=== PATIENT | female | born 1980 | race Caucasian/White ===

== ENCOUNTER → 2016-12-04 | Outpatient (CLI) | payer OTHER ==
[~2016-12-04] VITALS: Ht 167.6 cm; Wt 81.6 kg
[~2016-12-04] MED LIST: ACET500C11 PO; ACHD5005 PO; ACHYD1T PO; AMIT10TA6; AMIT25TA9; AZIT250T5; BUTA1CAP39 PO; CALC-817 PO; CALCIUM PO; CEFD300C3 PO; CHOL50003 PO; CPR500T PO; CYCL10TA9 PO; DCS100C PO; DICY10CA26 PO; FERR325C PO; HYDR-34 PO; HYDR-3812 PO; IBUP400T22 PO; Ibuprofen PO; MAG30ORA2 PO; MEPERIDINE HCL IV; METR500T PO; OMEG1CAP51 PO; POLY17PO23 GT; PROMETHAZINE INJ 25 MG/ML (PHENERGAN) AMP IV ONE; SMT80CT PO; TOPAMAX PO; TRAM50TA2 PO; VIT1TABL93 PO; [UNRECOGNIZED DRUG - OTHER]; [UNRECOGNIZED DRUG - OTHER] PO; [UNRECOGNIZED DRUG - OTHER] PO; bcp PO
[2016-12-04] MEDS: fentaNYL INJECTION 100 MCG/2 ML AMP IV NR ×2 (13:42→14:35)
[2016-12-04 14:08] LABS: MEAN PLATELET VOLUME 12.7 FL (7.4-10.4); RED BLOOD COUNT 4.51 10^6/uL (4.35-5.85); WHITE BLOOD COUNT 7.2 10^3/uL (4.3-11.0)
[2016-12-04 14:24] LABS: ALANINE AMINOTRANSFERASE 10 U/L (0-55); ALBUMIN 4.1 G/DL (3.2-4.5); ANION GAP 9 MMOL/L (5-14); ASPARTATE AMINO TRANSFERASE 16 U/L (5-34); BILIRUBIN,TOTAL 0.4 MG/DL (0.1-1.0); BLOOD UREA NITROGEN 13 MG/DL (7-18); BUN/CREATININE RATIO 16; CALCIUM 8.9 MG/DL (8.5-10.1); CARBON DIOXIDE 20 MMOL/L (21-32); CHLORIDE 113 MMOL/L (98-107); CREATININE SERUM 0.82 MG/DL (0.60-1.30); GFR ESTIMATED > 60; GLUCOSE 76 MG/DL (70-105); POTASSIUM 3.9 MMOL/L (3.6-5.0); SODIUM 142 MMOL/L (135-145); TOTAL PROTEIN 6.7 G/DL (6.4-8.2)
[2016-12-04 14:45] VITALS: BP 106/75
[2016-12-04 14:46] LABS: THYROID STIMULATING HORMONE 0.53 UIU/ML (0.35-4.94)
== END ==
LOC: SDC 13:01
PROVIDERS: ATTEND Nurse Practitioner Family
DX: G43.909 Migraine, unspecified, not intractable, without status migrainosus (principal)
CPT/HCPCS: 36415; 80053; 84443; 85027; 96365; 96374; 96375

== ENCOUNTER 2016-12-12 10:52 | Outpatient (RCR) | payer OTHER ==
--- OUTSIDE RECORDS SUMMARY | 2016-09-17 10:48 | XMS REPORT | Continuity of Care Document ---
Author Author [facility] Organization [facility] Address Unknown Phone Unavailable Care Team Providers Care Copy Center Associate Name Role Phone Unverified, Unverified PCP Unavailable Source Comments Some departments are not documenting in the electronic medical record. If you do not see the information that you expected, contact Release of Information in the Health Information Management department at [phone] for further assistance in locating additional records.[facility] Active Allergies and Adverse Reactions Not on File Current Medications Not on file Active Problems Not on file Social History Tobacco Use Types Packs/Day Years Used Date Never Assessed Plan of Care Health Maintenance Due Date Last Done Comments Physical (Comprehensive) 1987 Exam Pertussis Vaccine 1991 Tetanus Vaccine 1997 Cervical Cancer Screening 2001 Influenza Vaccine 05/01/2016 Results from Last 3 Months Not on file
[~2016-12-12 10:52] MED LIST changes: -AMIT10TA6; -AMIT25TA9; -AZIT250T5; -CEFD300C3 PO; -CYCL10TA9 PO; -HYDR-3812 PO; -PROMETHAZINE INJ 25 MG/ML (PHENERGAN) AMP IV ONE
== END 2016-12-12 11:51 | disposition home or self-care (01) ==
PROVIDERS: ATTEND Nurse Practitioner Family
DX: M54.2 Cervicalgia (principal); M25.511 Pain in right shoulder

== ENCOUNTER 2017-01-09 20:03 | Emergency (ER) | payer OTHER ==
[~2017-01-09] VITALS: Ht 167.6 cm; Wt 81.6 kg
[2017-01-09] MEDS ORDERED: fentaNYL INJECTION 100 MCG/2 ML AMP IVP STA ×2 (20:13→21:42)
[2017-01-09] MEDS ORDERED: TETANUS,DIPTH,PERTUSS P/F (BOOSTRIX) 0.5 ML VIAL IM STA (20:13)
[2017-01-09] MEDS ORDERED: AMIT10TA6 (20:14)
[2017-01-09] MEDS ORDERED: AZIT250T5 (20:14)
[2017-01-09] MEDS ORDERED: AMIT25TA9 (20:14)
[2017-01-09 20:25] LABS: MEAN PLATELET VOLUME 11.2 FL (7.4-10.4); RED BLOOD COUNT 4.22 10^6/uL (4.35-5.85); RED CELL DISTRIBUTION WIDTH 11.9 % (10.0-14.5); WHITE BLOOD COUNT 11.1 10^3/uL (4.3-11.0)
[2017-01-09] MEDS ORDERED: IOHEXOL 350 MG/ML 100 ML (OMNIPAQUE 350) VIAL IV ONE (20:30)
[2017-01-09] MEDS ORDERED: NS 100 ML (IVPB) BAG IV ONE (20:30)
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
[2017-01-09 20:44] LABS: ALANINE AMINOTRANSFERASE 19 U/L (0-55); ALBUMIN 4.2 G/DL (3.2-4.5); ALCOHOL < 10 MG/DL (<10); ANION GAP 13 MMOL/L (5-14); ASPARTATE AMINO TRANSFERASE 29 U/L (5-34); BILIRUBIN,TOTAL 0.2 MG/DL (0.1-1.0); BLOOD UREA NITROGEN 12 MG/DL (7-18); BUN/CREATININE RATIO 14; CALCIUM 9.5 MG/DL (8.5-10.1); CARBON DIOXIDE 19 MMOL/L (21-32); CHLORIDE 109 MMOL/L (98-107); CREATININE SERUM 0.85 MG/DL (0.60-1.30); GFR ESTIMATED > 60; GLUCOSE 92 MG/DL (70-105); POTASSIUM 3.7 MMOL/L (3.6-5.0); SODIUM 141 MMOL/L (135-145); TOTAL PROTEIN 7.1 G/DL (6.4-8.2)
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
[2017-01-09] MEDS ORDERED: HYDROcodone/APAP 7.5 MG/325 MG (LORTAB, LORCET PLUS) TABLET PO STA (21:42)
[2017-01-09] MEDS ORDERED: RX-HYDROCODONE/APAP 5/325 MG #4 TAB PK PO PRN (21:45)
[2017-01-09 22:16] LABS: BILIRUBIN,URINE NEGATIVE (NEGATIVE); KETONES,URINE NEGATIVE (NEGATIVE); LEUKOCYTE ESTERASE ,URINE NEGATIVE (NEGATIVE); NITRITE,URINE NEGATIVE (NEGATIVE); PH,URINE 6 (5-9); PROTEIN,URINE NEGATIVE (NEGATIVE); UROBILINOGEN,URINE NORMAL (NORMAL)
[2017-01-09] MEDS ORDERED: CYCL10TA9 PO (22:19)
[2017-01-09] MEDS ORDERED: HYDR-3812 PO (22:19)
[2017-01-09] MEDS ORDERED: CEFD300C3 PO (22:19)
[2017-01-09 22:23] LABS: SQUAMOUS EPITHELIAL CELL,UR 0-2 /HPF
[2017-01-09 22:28] VITALS: BP 136/94
== END 2017-01-09 22:32 | disposition home or self-care (01) ==
LOC: EDUNIT# 20:03 → ER 20:04
DX: S09.90XA Unspecified injury of head, initial encounter (principal); S20.212A Contusion of left front wall of thorax, initial encounter; S40.022A Contusion of left upper arm, initial encounter; S80.01XA Contusion of right knee, initial encounter; S30.1XXA Contusion of abdominal wall, initial encounter; Z23 Encounter for immunization; J32.0 Chronic maxillary sinusitis; W22.11XA Striking against or struck by driver side automobile airbag, initial encounter; V43.52XA Car driver injured in collision with other type car in traffic accident, initial encounter; Y92.481 Parking lot as the place of occurrence of the external cause; Y99.8 Other external cause status
CPT/HCPCS: 36415; 70450; 71010; 71260; 72125; 72170; 73060; 73562; 74177; 80053; 80320; 81000; 85027; 90471; 90715; 96374; 96376

== ENCOUNTER → 2017-05-14 | Outpatient (CLI) | payer OTHER ==
[~2017-05-14] MED LIST changes: +AMIT10TA6; +AMIT25TA9; +AZIT250T5; +CEFD300C3 PO; +CYCL10TA9 PO; +HYDR-3812 PO
--- NOTE | 2017-05-14 12:28 | Diagnostic Imaging Report ---
PROCEDURE: US Thyroid. TECHNIQUE: Multiple real-time grayscale images were obtained of the thyroid in various projections. INDICATION: Neck fullness. FINDINGS: The right thyroid lobe is 4.9 x 1.4 x 1.5 cm. The left lobe is 5.3 x 0.9 x 1.7 CM. There is a 0.6 x 0.7 x 0.5-cm hypoechoic nodule seen in the isthmus and another nonspecific hypoechoic nodule in the upper aspect of the left lobe measuring 0.6 x 0.5 x 0.3 cm. IMPRESSION: Tiny nonspecific subcentimeter thyroid nodule in the upper aspect of the left lobe and thyroid isthmus. Dictated by: Dictated on workstation # [id number]
== END ==
LOC: RAD 09:03
PROVIDERS: ATTEND Nurse Practitioner Family
DX: E04.1 Nontoxic single thyroid nodule (principal)
CPT/HCPCS: 76536

== ENCOUNTER → 2017-06-11 | Outpatient (CLI) | payer OTHER ==
--- NOTE | 2017-06-11 13:14 | Diagnostic Imaging Report ---
AP and frog lateral views of the right hip. INDICATION: Right hip pain. FINDINGS: No fracture, dislocation or radiopaque foreign body is seen. No arthritic changes are seen in the hip joint. IMPRESSION: Unremarkable exam. Dictated by: Dictated on workstation # [id number]
== END ==
LOC: RAD 11:57
PROVIDERS: ATTEND Nurse Practitioner Family
DX: M25.551 Pain in right hip (principal)
CPT/HCPCS: 73502

== ENCOUNTER 2017-07-30 23:38 | Emergency (ER) | payer OTHER ==
[~2017-07-30] VITALS: Ht 167.6 cm; Wt 81.6 kg
[~2017-07-30 23:38] MED LIST changes: +AZIT250T12; -AZIT250T5
--- OUTSIDE RECORDS SUMMARY | 2017-07-30 23:44 | XMS REPORT | Clinical Summary ---
Author Author [facility] Organization [facility] Address Unknown Phone Unavailable Care Team Providers Care Black Top Machine Operator Name Role Phone PCP Unavailable Source Comments Some departments are not documenting in the electronic medical record. If you do not see the information that you expected, contact Release of Information in the Health Information Management department at [phone] for further assistance in locating additional records.[facility] Allergies Not on File Current Medications Not on file Active Problems Not on file Social History Tobacco Use Types Packs/Day Years Used Date Never Assessed Sex Assigned at Date Recorded Not on file Last Filed Vital Signs Not on file Plan of Treatment Health Maintenance Due Date Last Done Comments PHYSICAL (COMPREHENSIVE) 1987 EXAM PERTUSSIS VACCINE 1991 TETANUS VACCINE 1997 CERVICAL CANCER SCREENING 2010 INFLUENZA VACCINE 03/31/2017 Results Not on filefrom Last 3 Months
[2017-07-31 01:20] LABS: BILIRUBIN,URINE NEGATIVE (NEGATIVE); KETONES,URINE 1+ (NEGATIVE); LEUKOCYTE ESTERASE ,URINE 1+ (NEGATIVE); NITRITE,URINE NEGATIVE (NEGATIVE); PH,URINE 5 (5-9); PROTEIN,URINE 1+ (NEGATIVE); UROBILINOGEN,URINE NORMAL (NORMAL)
[2017-07-31 01:27] LABS: BASOPHILS % (AUTO) 0 % (0-10); EOSINOPHILS % (AUTO) 0 % (0-10); LYMPHOCYTES # (AUTO) 1.5 X 10^3 (1.0-4.0); LYMPHOCYTES % (AUTO) 15 % (12-44); MEAN CORPUSCULAR HEMOGLOBIN 31 PG (25-34); MEAN CORPUSCULAR HGB CONC 34 G/DL (32-36); MEAN CORPUSCULAR VOLUME 89 FL (80-99); MEAN PLATELET VOLUME 12.2 FL (7.4-10.4); MONOCYTES # (AUTO) 0.4 X 10^3 (0.0-1.0); MONOCYTES % (AUTO) 4 % (0-12); NEUTROPHILS # (AUTO) 7.9 X 10^3 (1.8-7.8); NEUTROPHILS % (AUTO) 81 % (42-75); PLATELET COUNT 270 10^3/uL (130-400); RED BLOOD COUNT 4.42 10^6/uL (4.35-5.85); RED CELL DISTRIBUTION WIDTH 11.9 % (10.0-14.5); WHITE BLOOD COUNT 9.8 10^3/uL (4.3-11.0)
[2017-07-31 01:33] LABS: ALANINE AMINOTRANSFERASE 19 U/L (0-55); ALBUMIN 4.2 GM/DL (3.2-4.5); ANION GAP 12 MMOL/L (5-14); ASPARTATE AMINO TRANSFERASE 28 U/L (5-34); BILIRUBIN,TOTAL 0.4 MG/DL (0.1-1.0); BLOOD UREA NITROGEN 12 MG/DL (7-18); BUN/CREATININE RATIO 15; CALCIUM 9.3 MG/DL (8.5-10.1); CARBON DIOXIDE 16 MMOL/L (21-32); CHLORIDE 110 MMOL/L (98-107); CREATININE SERUM 0.81 MG/DL (0.60-1.30); GFR ESTIMATED > 60; GLUCOSE 116 MG/DL (70-105); POTASSIUM 3.8 MMOL/L (3.6-5.0); SODIUM 138 MMOL/L (135-145); TOTAL PROTEIN 7.9 GM/DL (6.4-8.2)
[2017-07-31 01:36] LABS: WBC,URINE RARE /HPF
[2017-07-31] MEDS ORDERED: LACTATED RINGERS 1,000 ML IV ONE (01:50)
--- NOTE | 2017-07-31 01:55 | ED Headache ---
General Chief Complaint: Head/Cervical Problems Stated Complaint: NAUSEA,VOMITING,ALAMO,NECK PAIN Nursing Triage Note: c/o migraine, different from normal migraines, n/v Nursing Sepsis Screen: No Definite Risk Source: patient Exam Limitations: no limitations History of Present Illness Time seen by provider: 01:52 Initial Comments Patient presents to ER by private conveyance with chief complaint that she has a history of migraines. At 1600 yesterday evening she began to experience a right-sided migraine headache preceded by aura of nausea which is her normal presentation. 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 When she was off call she took her Phenergan but was so nauseated that she threw it up. She took her other medicines and amitriptyline and threw those up as well. She uses only amitriptyline for prophylaxis. Patient's having nausea now but no shortness of breath, fevers, diarrhea, rash. She has vomited once tonight and had some chills. No recent illnesses or sick contacts. Her headache is now global in nature and radiates to the base of her head where her neck, connects to her head. Allergies and Home Medications Allergies Coded Allergies: latex (Verified Allergy, Unknown, 04/25/14) Uncoded Allergies: MALARIA MEDICATION (Allergy, Mild, 04/11/13) malaria drug (Allergy, Unknown, 04/25/14) Home Medications Amitriptyline HCl 25 Mg Tablet, #30 (Reported) Amitriptyline HCl 10 Mg Tablet, #30 (Reported) Azithromycin 250 Mg Tablet, #6 (Reported) Cefdinir 300 Mg Capsule, 300 MG PO BID, #20 Ref 0 Prescribed by: LUCHO QUIÑONES on 01/09/172218 Cyclobenzaprine HCl 10 Mg Tablet, 10 MG PO Q8H PRN for SPASMS, #15 Ref 0 Prescribed by: LUCHO QUIÑONES on 01/09/172218 Hydrocodone/Acetaminophen 1 Each Tablet, 1 EACH PO Q4H PRN for PAIN-MODERATE, # 15 Ref 0 Prescribed by: LUCHO QUIÑONES on 01/09/172218 Constitutional: chills, No dizziness, No fever Eyes: Denies Blindness, Blurred Vision, Photophobia Ears, Nose, Mouth, Throat: denies ear pain, denies ear discharge Respiratory: No cough, No short of breath Cardiovascular: No chest pain, No palpitations Gastrointestinal: nausea, vomiting Genitourinary: No discharge, No dysuria : No (hysterectomy) Musculoskeletal: No back pain, No joint pain Skin: No pruritus, No rash Psychiatric/Neurological: See HPI, Headache, Denies Numbness, Denies Paresthesia Past [id number]-Jdnjdi Hx Patient Social History Alcohol Use: Denies Use Recreational Drug Use: No Smoking Status: Never a Smoker Recent Foreign Travel: No Contact w/Someone Who Travel: No Recent Infectious Disease Expo: No Recent Hopitalizations: No Immunizations Up To Date Date of Influenza Vaccine: May 31, 2012 Seasonal Allergies Seasonal Allergies: Yes Surgeries History of Surgeries: Yes (DXLS X2, OVARIAN CYSTECTOMY, ) Surgeries: Hysterectomy Respiratory History of Respiratory Disorde: No Cardiovascular History of Cardiac Disorders: No Neurological History of Neurological Disord: Yes (MIGRAINES) Reproductive System Hx Reproductive Disorders: Yes (ENDOMETRIOSIS) Sexually Transmitted Disease: No HIV/AIDS: No Female Reproductive Disorders: Endometriosis, Ovarian Cyst Gastrointestinal History of Gastrointestinal Di: Yes (IBS) Musculoskeletal History of Musculoskeletal Dis: No Musculoskeletal Disorders: Back Injury Endocrine History of Endocrine Disorders: No Cancer History of Cancer: No Psychosocial History of Psychiatric Problem: No Integumentary History of Skin or Integumenta: No Blood Transfusions History of Blood Disorders: Yes Adverse Reaction to a Blood Tr: No Family Medical History Significant Family History: Heart Disease, Migraines Family Medial History: Arthritis 19 MOTHER Thyroid disease 19 MOTHER No Family History of: AIDS Abdominal aortic aneurysm Alcoholism Alzheimer's disease Asthma Cancer of mouth Cardiovascular disease Cataracts Colon cancer Completed stroke Congenital disease Dementia Drug abuse Glaucoma Hypercholesterolemia Hypertension Infertility Myocardial infarction Parkinson's disease Prostate cancer Psychosocial problem Respiratory disorder Seizure disorder Severe allergy Tuberculosis Physical Exam Vital Signs Vital Sign - Last 12Hours 07/31/17 00:20 Temp 98.9 Pulse 93 Resp 18 B/P (MAP) 131/94 (106) Pulse Ox 99 Capillary Refill : Less Than 3 Seconds General Appearance: WD/WN, mild distress HEENT: PERRL/EOMI, normal ENT inspection, TMs normal, pharynx normal Neck: non-tender, full range of motion, supple, normal inspection Cardiovascular: normal peripheral pulses, regular rate, rhythm, no edema Respiratory: chest non-tender, lungs clear Gastrointestinal: non tender, soft Extremities: non-tender, normal capillary refill Psychiatric: alert, oriented x 3 Crainal Nerves: normal hearing, normal speech, PERRL Coordination/Gait: normal gait Motor/Sensory: no motor deficit, no sensory deficit Skin: normal color, warm/dry Progress/Results/Core Measures Results/Orders Lab Results Laboratory Tests Test 07/31/17 00:25 07/31/17 01:14 Range/Units White Blood Count 9.8 4.3-11.0 10^3/uL Red Blood Count 4.42 4.35-5.85 10^6/uL Hemoglobin 13.5 11.5-16.0 G/DL Hematocrit 39 35-52 % Mean Corpuscular Volume 89 80-99 FL Mean Corpuscular Hemoglobin 31 25-34 PG Mean Corpuscular Hemoglobin Concent 34 32-36 G/DL Red Cell Distribution Width 11.9 10.0-14.5 % Platelet Count 270 130-400 10^3/uL Mean Platelet Volume 12.2 H 7.4-10.4 FL Neutrophils (%) (Auto) 81 H 42-75 % Lymphocytes (%) (Auto) 15 12-44 % Monocytes (%) (Auto) 4 0-12 % Eosinophils (%) (Auto) 0 0-10 % Basophils (%) (Auto) 0 0-10 % Neutrophils # (Auto) 7.9 H 1.8-7.8 X 10^3 Lymphocytes # (Auto) 1.5 1.0-4.0 X 10^3 Monocytes # (Auto) 0.4 0.0-1.0 X 10^3 Eosinophils # (Auto) 0.0 0.0-0.3 10^3/uL Basophils # (Auto) 0.0 0.0-0.1 10^3/uL Sodium Level 138 135-145 MMOL/L Potassium Level 3.8 3.6-5.0 MMOL/L Chloride Level 110 H 98-107 MMOL/L Carbon Dioxide Level 16 L 21-32 MMOL/L Anion Gap 12 5-14 MMOL/L Blood Urea Nitrogen 12 7-18 MG/DL Creatinine 0.81 0.60-1.30 MG/DL Estimat Glomerular Filtration Rate > 60 BUN/Creatinine Ratio 15 Glucose Level 116 H 70-105 MG/DL Calcium Level 9.3 8.5-10.1 MG/DL Total Bilirubin 0.4 0.1-1.0 MG/DL Aspartate Amino Transf (AST/SGOT) 28 5-34 U/L Alanine Aminotransferase (ALT/SGPT) 19 0-55 U/L Alkaline Phosphatase 64 40-136 U/L Total Protein 7.9 6.4-8.2 GM/DL Albumin 4.2 3.2-4.5 GM/DL Urine Color HALINA H Urine Clarity CLEAR Urine pH 5 5-9 Urine Specific [place] 1.025 H 1.016-1.022 Urine Protein 1+ H NEGATIVE Urine Glucose (UA) NEGATIVE NEGATIVE Urine Ketones 1+ H NEGATIVE Urine Nitrite NEGATIVE NEGATIVE Urine Bilirubin NEGATIVE NEGATIVE Urine Urobilinogen NORMAL NORMAL MG/DL Urine Leukocyte Esterase 1+ H NEGATIVE Urine RBC (Auto) NEGATIVE NEGATIVE Urine RBC NONE /HPF Urine WBC RARE /HPF Urine Squamous Epithelial Cells 2-5 /HPF Urine Crystals NONE /LPF Urine Bacteria TRACE /HPF Urine Casts NONE /LPF Urine Mucus LARGE H /LPF Urine Culture Indicated NO My Orders Orders - MERLIN HEWITT Cbc With Automated Diff (07/31/17 01:14) Comprehensive Metabolic Panel (07/31/17 01:14) Ua Culture If Indicated (07/31/17 01:14) Prochlorperazine Injection (Compazine In (07/31/17 02:00) Ondansetron Injection (Zofran Injectio (07/31/17 02:00) Ketorolac Injection (Toradol Injection) (07/31/17 02:00) Sumatriptan Injection (Imitrex Injection (07/31/17 02:00) Saline Lock/Iv-Start (07/31/17 01:50) Lactated Ringers (Lr 1000 Ml Iv Solution (07/31/17 01:50) Medications Given in ED Current Medications Medications Dose Ordered Sig/Marcello Route Start Time Stop Time Status Last Admin Dose Admin Ketorolac Tromethamine 15 mg ONCE ONCE IVP 07/31/17 02:00 07/31/17 02:01 DC 07/31/17 02:04 15 MG Lactated Ringer's 1,000 ml @ 0 mls/hr Q0M ONCE IV 07/31/17 01:50 07/31/17 01:52 DC 07/31/17 02:03 0 MLS/HR Ondansetron HCl 4 mg ONCE ONCE IVP 07/31/17 02:00 07/31/17 02:01 DC 07/31/17 02:05 4 MG Prochlorperazine Edisylate 10 mg ONCE ONCE IV 07/31/17 02:00 07/31/17 02:01 DC 07/31/17 02:05 10 MG Sumatriptan Succinate 6 mg ONCE ONCE SQ 07/31/17 02:00 07/31/17 02:01 DC 07/31/17 02:05 6 MG Vital Signs/I&O Vital Sign - Last 12Hours 07/31/17 00:20 Temp 98.9 Pulse 93 Resp 18 B/P (MAP) 131/94 (106) Pulse Ox 99 Blood Pressure Mean: 106 Progress Note : Time: 02:42 Progress Note The patient states her nausea is now under control however her headaches only marginally better. She feels that she can go home and sleep the rest of it off as well as using her own Phenergan at home. Departure Impression Impression: Primary Impression: Migraine Qualified Codes: G43.109 - Migraine with aura, not intractable, without status migrainosus Disposition: 01 HOME, SELF-CARE Condition: Stable Departure-Patient Inst. Decision time for Depature: 02:43 Referrals: HARMAN ALARCON MD (PCP/Family) Primary Care Physician Patient Instructions: Migraine Headache (DC) Add. Discharge Instructions: Go home and get some sleep, use her Phenergan and drink plenty of fluids. All discharge instructions reviewed with patient and/or family. Voiced understanding. Copy Copies To 1: HARMAN ALARCON MD, TITUS J Jul 31, 2017 01:55
[2017-07-31] MEDS ORDERED: KETOROLAC 30 MG/ML VIAL IVP ONE (02:00)
[2017-07-31] MEDS ORDERED: SUMAtriptan 6 MG/0.5 ML (IMITREX) INJ SQ ONE (02:00)
[2017-07-31] MEDS ORDERED: PROCHLORPERAZINE 10 MG/2ML INJ (COMPAZINE) IV ONE (02:00)
[2017-07-31] MEDS ORDERED: ONDANSETRON 4 MG/2 ML (SDV) Z0FRAN IVP ONE (02:00)
[2017-07-31 02:55] VITALS: BP 131/94
== END 2017-07-31 02:54 | disposition home or self-care (01) ==
LOC: EDUNIT# 23:38 → ER 23:41
DX: G43.909 Migraine, unspecified, not intractable, without status migrainosus (principal); Z90.710 Acquired absence of both cervix and uterus; Z90.6 Acquired absence of other parts of urinary tract; Z87.448 Personal history of other diseases of urinary system; Z87.19 Personal history of other diseases of the digestive system; Z82.49 Family history of ischemic heart disease and other diseases of the circulatory system
CPT/HCPCS: 36415; 80053; 81000; 85025

== ENCOUNTER → 2017-12-18 | Outpatient (CLI) | payer OTHER ==
[~2017-12-18] MED LIST changes: -HYDR-3812 PO
[2017-12-18 09:20] LABS: FREE T4 (FREE THYROXINE) 1.06 NG/DL (0.70-1.48)
--- NOTE | 2017-12-18 11:41 | Diagnostic Imaging Report ---
PROCEDURE: US Thyroid. TECHNIQUE: Multiple real-time grayscale images were obtained of the thyroid in various projections. INDICATION: Thyroid nodules, followup. COMPARISON: Comparison is made with prior thyroid ultrasound from 05/14/2017. FINDINGS: The right lobe of the thyroid measures 5.1 x 1.1 x 1.8 cm, and the left lobe measures 5.6 x 1.2 x 1.6 cm. Well-defined hypoechoic nodule in the mid left lobe measures 5 mm x 3 mm, stable when compared with prior exam. Hypoechoic nodule in the lower pole of the right lobe measures 7 mm x 5 mm x 5 mm, also stable when compared with prior study. No new mass is detected. IMPRESSION: Stable subcentimeter thyroid nodules when compared with examination from 05/14/2017. Additional followup in six months is recommended to confirm stability. Dictated by: Dictated on workstation # [id number]
== END ==
LOC: RAD 07:50
PROVIDERS: ATTEND Otolaryngology Otolaryngology/Facial Plastic Surgery
DX: E04.2 Nontoxic multinodular goiter (principal)
CPT/HCPCS: 36415; 76536; 84439; 84443

== ENCOUNTER → 2018-06-17 | Outpatient (CLI) | payer OTHER ==
--- NOTE | 2018-06-17 13:44 | Diagnostic Imaging Report ---
INDICATION: Right shoulder pain x2 weeks. Three views of the right shoulder show no fracture, dislocation or other acute abnormalities. IMPRESSION: Negative right shoulder. Dictated by: Dictated on workstation # [id number]
--- NOTE | 2018-06-17 14:02 | Diagnostic Imaging Report ---
INDICATION: Neck pain x2 years. Cervical spine. FINDINGS: AP and lateral views of the cervical spine show normal vertebral body height and alignment. There is disc space narrowing at C5-C6 with some osteophytes forming anteriorly. The other intervertebral disc spaces are normal. Posterior elements are unremarkable. There is no fracture seen. IMPRESSION: Degenerative disc changes at C5-C6. Cervical spine otherwise unremarkable. Dictated by: Dictated on workstation # [id number]
== END ==
LOC: RAD 10:55
PROVIDERS: ATTEND Nurse Practitioner Family
DX: M50.322 Other cervical disc degeneration at C5-C6 level (principal); M25.511 Pain in right shoulder
CPT/HCPCS: 72040; 73030

== ENCOUNTER → 2018-06-17 | Outpatient (CLI) | payer OTHER ==
[~2018-06-17] VITALS: Ht 167.6 cm; Wt 81.6 kg
[~2018-06-17] MED LIST changes: +KETOROLAC 30 MG/ML VIAL IV ONE; +LIDOCAINE 1% INJ 20 ML 20 ML VIAL ONE; +NS IV 1000 ML 1,000 ML IV SCH; +NS IV 1000 ML 1,000 ML ONE; +PROMETHAZINE INJ 25 MG/ML (PHENERGAN) AMP IV PRN; +fentaNYL INJECTION 250 MCG/5 ML AMP IVP ONE
[2018-06-17] MEDS: fentaNYL INJECTION 100 MCG/2 ML AMP IV PRN ×2 (12:22→13:17)
[2018-06-17 13:56] VITALS: BP 117/92
== END | disposition home or self-care (01) ==
LOC: SDC 11:25
PROVIDERS: ATTEND Nurse Practitioner Family
DX: G40.909 Epilepsy, unspecified, not intractable, without status epilepticus (principal); E86.0 Dehydration
CPT/HCPCS: 96374; 96375

== ENCOUNTER → 2018-07-13 | Outpatient (CLI) | payer OTHER ==
[~2018-07-13] MED LIST changes: -KETOROLAC 30 MG/ML VIAL IV ONE; -LIDOCAINE 1% INJ 20 ML 20 ML VIAL ONE; -NS IV 1000 ML 1,000 ML IV SCH; -NS IV 1000 ML 1,000 ML ONE; -PROMETHAZINE INJ 25 MG/ML (PHENERGAN) AMP IV PRN; -fentaNYL INJECTION 250 MCG/5 ML AMP IVP ONE
--- NOTE | 2018-07-13 12:38 | Diagnostic Imaging Report ---
PROCEDURE: MR imaging cervical spine without contrast. TECHNIQUE: Multiplanar, multisequence MR imaging of the cervical spine was performed without contrast. INDICATION: Neck pain and bilateral shoulder pain, numbness, headaches. COMPARISON: Exam interpreted in correlation with CT cervical spine of 01/09/2017, no previous MRI for direct comparison. FINDINGS: The cervical spinal cord itself has a normal volume and normal morphology and normal signal intensity. CSF circumscribes the cord at each vertebral body and disc space level. The disc at the C5-C6 level shows mild desiccation, mild stature loss, and some generalized bulging without a substantial degree of spinal canal stenosis. Disc material does mildly narrow the neuroforamina bilaterally at this level. The remaining neuroforamina are widely patent. When the differing modalities taken into account, this level does not appear appreciably changed from prior. The remaining discs are well maintained. No evidence for ligamentous injury. No paravertebral mass, hemorrhage, or fluid collection. IMPRESSION: Mild chronic C5-C6 spondylosis without substantial canal stenosis. Mild biforaminal narrowing owing to disc material. Normal alignment. Normal cord. No acute bony pathology. Dictated by: Dictated on workstation # [id number]
== END ==
LOC: RAD 11:44
PROVIDERS: ATTEND Physician Assistant
DX: M47.812 Spondylosis without myelopathy or radiculopathy, cervical region (principal); M99.71 Connective tissue and disc stenosis of intervertebral foramina of cervical region
CPT/HCPCS: 72141

== ENCOUNTER 2018-08-26 08:00 | Outpatient (RCR) | payer OTHER | END 2018-09-16 11:14 | disposition home or self-care (01) | PROVIDERS: ATTEND Nurse Practitioner Family | DX: M54.2 Cervicalgia (principal); M25.511 Pain in right shoulder ==

== ENCOUNTER 2018-09-16 11:20 | Outpatient (RCR) | payer OTHER | END 2018-10-25 15:15 | disposition home or self-care (01) | PROVIDERS: ATTEND Nurse Practitioner Family | DX: M54.2 Cervicalgia (principal); M25.511 Pain in right shoulder ==

== ENCOUNTER → 2019-07-04 | Outpatient (CLI) | payer OTHER ==
--- NOTE | 2019-07-04 11:11 | Diagnostic Imaging Report ---
CLINICAL INDICATION: Patient with multinodular goiter. COMPARISONS: Thyroid ultrasound dated 12/18/2017. FINDINGS: THYROID NODULES: There is no significant change to the 6 mm x 5 mm x 5 mm heterogeneous hypoechoic nodule involving the inferior portion of the right thyroid gland. There is no significant change to the 5 mm x 4 mm x 3 mm slightly hypoechoic nodule involving the upper portion of the left thyroid gland. There is interval development of a 2 mm x 2 mm x 2 mm circumscribed hypoechoic nodule involving the midportion of the left thyroid gland. THYROID GLAND: Besides the thyroid nodules, the thyroid gland has normal size, shape and echogenicity. The right lobe measures 5.3 cm x 1.2 cm x 1.8 cm and the left lobe measures 5.3 cm x 1.0 cm x 1.9 cm in their three dimensions. ISTHMUS: The isthmus is unremarkable and measures 3 mm in thickness. IMPRESSION: 1: There is interval development of a 2 mm hypoechoic nodule involving the midportion of the left thyroid gland. 2: There is no significant change to the 6 mm nodule in the right thyroid gland and 5 mm nodule in the left thyroid gland. Dictated by: Dictated on workstation # [id number]
== END ==
LOC: RAD 10:23
PROVIDERS: ATTEND Otolaryngology Otolaryngology/Facial Plastic Surgery
DX: E04.2 Nontoxic multinodular goiter (principal)
CPT/HCPCS: 76536